=== PATIENT | female | born 1995 | race Caucasian/White ===

== ENCOUNTER 2016-07-15 14:01 | Day surgery (SDC) | payer MEDICAID ==
[~2016-07-15] VITALS: Ht 162.6 cm; Wt 65.0 kg
[~2016-07-15 14:01] MED LIST: ALBU8.5H5; CEPH-368 PO; OXYC-302 PO
[2016-07-15] MEDS ORDERED: LACTATED RINGERS 1,000 ML IV SCH (14:20)
[2016-07-15 14:39] VITALS: BP 104/67
[2016-07-15] MEDS ORDERED: LIDOCAINE 1%, 20ML ONE (14:51)
[2016-07-15] MEDS ORDERED: FENTANYL PF 250 MCG/5ML ONE (15:11)
[2016-07-15] MEDS ORDERED: MIDAZOLAM 1 MG/ML, 5ML ONE (15:11)
[2016-07-15] MEDS ORDERED: KETAMINE 10 MG/ML, 20ML ONE (15:12)
[2016-07-15] MEDS ORDERED: PROPOFOL 10 MG/ML, 20ML ONE (15:15)
[2016-07-15] MEDS ORDERED: PHENYLEPHRINE 10 MG/ML ONE (15:15)
[2016-07-15] MEDS ORDERED: FENTANYL PF 100 MCG/2ML ONE ×2 (16:12→16:36)
[2016-07-15] MEDS: FENTANYL PF 100 MCG/2ML IV PRN ×4 (16:15→16:48)
[2016-07-15] MEDS ORDERED: OXYcodone 5 MG/5 ML ORAL.SOL UDC ONE (16:20)
[2016-07-15] MEDS ORDERED: HYDROmorphone 1 MG/ML, 1ML IV PRN (16:30)
[2016-07-15] MEDS ORDERED: OXYcodone 5 MG/5 ML ORAL.SOL UDC PO PRN (16:30)
[2016-07-15] MEDS ORDERED: HYDROcodone/APAP 7.5-325MG/15ML UDC PO PRN (16:30)
[2016-07-15] MEDS ORDERED: ONDANSETRON 2MG/ML, 2ML IVPush PRN (16:30)
[2016-07-15 18:15] VITALS: BP 103/58
[2016-07-24] MEDS ORDERED: CEPH-367 PO (23:52)
[2016-08-07] MEDS ORDERED: OXYC-302 PO (17:45)
[2016-08-07] MEDS ORDERED: IBUP-1222 PO (17:46)
[2016-08-07] MEDS ORDERED: SENN1TAB5 PO (17:47)
== END 2016-07-15 20:00 | disposition home or self-care (01) ==
LOC: RAD 14:01 → LDOP 20:00
PROVIDERS: ATTEND Obstetrics & Gynecology
DX: O26.833 Pregnancy related renal disease, third trimester (principal); N13.2 Hydronephrosis with renal and ureteral calculous obstruction; Z3A.33 33 weeks gestation of pregnancy; Z46.6 Encounter for fitting and adjustment of urinary device
CPT/HCPCS: 50435; 59025; 99211; C1729; C1769; J2250; J2370; J2704; J3010; J3490; G0463